=== PATIENT | female | born 1995 | race Two or more races ===

== ENCOUNTER 2024-09-26 11:05 | Outpatient (CLI) | payer OTHER | END 2024-09-26 11:06 | disposition home or self-care (01) | LOC: PRENATAL 11:05 | PROVIDERS: ATTEND Obstetrics & Gynecology Maternal & Fetal Medicine | DX: O36.80X0 Pregnancy with inconclusive fetal viability, not applicable or unspecified (principal); Z36.82 Encounter for antenatal screening for nuchal translucency; Z14.8 Genetic carrier of other disease; O44.00 Complete placenta previa NOS or without hemorrhage, unspecified trimester; Z3A.14 14 weeks gestation of pregnancy ==

== ENCOUNTER → 2024-11-06 14:28 | Outpatient (CLI) | payer OTHER | END | disposition home or self-care (01) | LOC: PRENATAL 14:28 | PROVIDERS: ATTEND Obstetrics & Gynecology | DX: O44.00 Complete placenta previa NOS or without hemorrhage, unspecified trimester (principal); Z3A.20 20 weeks gestation of pregnancy ==

== ENCOUNTER 2024-12-17 17:05 | Emergency (ER) | payer OTHER ==
[~2024-12-17] VITALS: Ht 154.9 cm; Wt 61.2 kg
[2024-12-17] MEDS ORDERED: PRENATAL + DHA1 EAC1 PO (17:42)
[2024-12-17 18:24] LABS: BASO % 0.3 % (0.1-1.2); EOS # 0.09 (0.04-0.54); EOS % 0.8 % (0.7-7.0); LYMPH # 1.61 (1.18-3.74); LYMPH % 13.8 % (19.3-53.1); MEAN PLATELET VOLUME 10.00 fl (9.4-12.4); MONO # 0.86 (0.24-0.82); MONO % 7.4 % (4.7-12.5); NEUT # 9.01 (1.56-6.13); NEUT % 76.9 % (34.0-71.1); RED CELL DISTRIBUTION WIDTH 13.9 % (11.6-14.4)
[2024-12-17 18:51] LABS: BUN CREA RATIO 15.0 (7.0-25.0); CREATININE SERUM 0.48 mg/dL (0.55-1.02); GFR 154.0; GLUCOSE FASTING 102.0 mg/dL (65-100); OSMOLALITY SERUM 276.0 MOSM/KG (275-295)
[2024-12-17 19:46] LABS: URINE APPEARANCE Clear; URINE BILIRRUBIN Negative (NEGATIVE); URINE BLOOD Negative; URINE COLOR Yellow; URINE GLUCOSE Negative (NEGATIVE); URINE KETONE Negative (NEGATIVE); URINE LEUKOCYTE Negative; URINE NITRATE Negative; URINE PROTEIN Negative (NEGATIVE); URINE UROBILINOGEN 1.0 E.U./dl
[2024-12-17 19:50] LABS: URINE BACTERIA 901.2 uL (0.0-1933); URINE EPITHELIAL CELLS 50.2 uL (0.0-38.8); URINE RBC 9.0 uL (0.0-20.8); URINE WBC 6.9 uL (0.0-23.2)
[2024-12-17 19:54] LABS: URINE CAST 0.00 uL (0.0-1.40)
[2024-12-17] MEDS ORDERED: MYCELEX VAG (20:53)
== END 2024-12-17 21:18 ==
LOC: ER 17:08
PROVIDERS: Emergency Medicine
DX: O23.592 Infection of other part of genital tract in pregnancy, second trimester (principal); Z3A.26 26 weeks gestation of pregnancy; B37.49 Other urogenital candidiasis

== ENCOUNTER → 2025-01-16 | Outpatient (CLI) | payer OTHER ==
[~2025-01-16] MED LIST: MYCELEX VAG; PRENATAL + DHA1 EAC1 PO
== END | disposition home or self-care (01) ==
LOC: PRENATAL 12:56
PROVIDERS: ATTEND Obstetrics & Gynecology Maternal & Fetal Medicine
DX: Z76.1 Encounter for health supervision and care of foundling (principal)

== ENCOUNTER 2025-01-30 13:36 | Inpatient (IN) | payer OTHER ==
[~2025-01-30] VITALS: Ht 154.9 cm; Wt 1.4 kg
[2025-01-30] MEDS ORDERED: BETAMETHASONE ACETATE,SOD PHOS 30 MG/5 ML ML ONE (13:41)
[2025-01-30 14:00] VITALS: BP 112/69
[2025-01-30] MEDS ORDERED: BETAMETHASONE ACETATE,SOD PHOS 30 MG/5 ML ML IM ONE (14:18)
[2025-01-30 15:04] LABS: BASO % 0.2 % (0.1-1.2); EOS # 0.05 (0.04-0.54); EOS % 0.5 % (0.7-7.0); LYMPH # 1.28 (1.18-3.74); LYMPH % 13.3 % (19.3-53.1); MEAN PLATELET VOLUME 10.70 fl (9.4-12.4); MONO # 0.87 (0.24-0.82); MONO % 9.1 % (4.7-12.5); NEUT # 7.32 (1.56-6.13); NEUT % 76.4 % (34.0-71.1); RED CELL DISTRIBUTION WIDTH 14.6 % (11.6-14.4)
[2025-01-30 15:11] LABS: URINE APPEARANCE Cloudy; URINE BILIRRUBIN Negative (NEGATIVE); URINE BLOOD Moderate; URINE COLOR Yellow; URINE KETONE Trace (NEGATIVE); URINE LEUKOCYTE Trace; URINE NITRATE Negative; URINE PROTEIN Negative (NEGATIVE); URINE UROBILINOGEN 1.0 E.U./dl
[2025-01-30 15:14] LABS: URINE BACTERIA 555.5 uL (0.0-1933); URINE EPITHELIAL CELLS 42.7 uL (0.0-38.8); URINE RBC 10.1 uL (0.0-20.8); URINE WBC 22.9 uL (0.0-23.2)
[2025-01-30 15:19] LABS: URINE CAST 0.00 uL (0.0-1.40); URINE GLUCOSE 250 MG/DL (NEGATIVE)
[2025-01-30 15:50] VITALS: BP 115/70
[2025-01-30 15:52] LABS: INR 0.97
[2025-01-30] MEDS ORDERED: OXYTOCIN 10 UNITS/ML VIAL ONE (17:56)
[2025-01-30] MEDS ORDERED: ERYTHROMYCIN BASE OPHT 1GM EACH TUBE OP ONE (17:56)
[2025-01-30] MEDS ORDERED: MORPHINE SULFATE 4 MG/ML CARTRIDGE IV SCH (21:00)
[2025-01-30] MEDS ORDERED: KETOROLAC TROMETHAMINE 60 MG VIAL IM ONE (21:08)
[2025-01-30 22:22] VITALS: BP 123/70
[2025-01-31] VITALS: BP 100/60
[2025-01-31] MEDS ORDERED: KETOROLAC TROMETHAMINE 60 MG VIAL IM NR (02:00)
[2025-01-31] MEDS ORDERED: OxyCODONE HCL 5 MG TABLET (ROXICODONE) PO SCH (05:00)
[2025-01-31 06:31] LABS: BASO % 0.1 % (0.1-1.2); EOS # 0.00 (0.04-0.54); EOS % 0.0 % (0.7-7.0); LYMPH # 1.17 (1.18-3.74); LYMPH % 7.1 % (19.3-53.1); MEAN PLATELET VOLUME 11.20 fl (9.4-12.4); MONO # 1.08 (0.24-0.82); MONO % 6.6 % (4.7-12.5); NEUT # 14.08 (1.56-6.13); NEUT % 85.5 % (34.0-71.1); RED CELL DISTRIBUTION WIDTH 14.6 % (11.6-14.4)
[2025-01-31 08:00] VITALS: BP 128/71
[2025-01-31] MEDS ORDERED: SIMETHICONE 125 MG CAPSULE PO SCH (08:00)
[2025-01-31] MEDS ORDERED: DOCUSATE SODIUM 100MG CAP PO SCH (08:00)
[2025-01-31] MEDS ORDERED: PNV,CALCIUM 72/IRON/FOLIC ACID 1 TAB TABLET PO SCH (08:00)
[2025-01-31] MEDS ORDERED: BETAMETHASONE ACETATE,SOD PHOS 30 MG/5 ML ML IM NR (14:15)
[2025-01-31 16:00] VITALS: BP 106/65
[2025-02-01 00:39] VITALS: BP 100/60
[2025-02-01 08:48] VITALS: BP 101/62
[2025-02-01 19:37] VITALS: BP 104/67
[2025-02-02 00:34] VITALS: BP 106/69
[2025-02-02 08:00] VITALS: BP 113/74
== END 2025-02-02 14:37 | disposition home or self-care (01) | DRG 786 ==
LOC: LDR 13:36 → OB/GYN 13:36 → O/R 18:17 → OB/GYN 20:18
PROVIDERS: ADMIT Obstetrics & Gynecology; ATTEND Obstetrics & Gynecology
PROC: 4A1HXCZ Monitoring of Products of Conception, Cardiac Rate, External Approach (ICD-10-PCS; 2025-01-30)
PROC: BY4FZZZ Ultrasonography of Third Trimester, Single Fetus (ICD-10-PCS; 2025-01-30)
PROC: BU4CZZZ Ultrasonography of Uterus and Ovaries (ICD-10-PCS; 2025-01-30)
PROC: 10D00Z1 Extraction of Products of Conception, Low, Open Approach (ICD-10-PCS; principal; 2025-01-30 18:30)
DX: O32.1XX0 Maternal care for breech presentation, not applicable or unspecified (principal); O60.14X0 Preterm labor third trimester with preterm delivery third trimester, not applicable or unspecified; O26.843 Uterine size-date discrepancy, third trimester; O36.8130 Decreased fetal movements, third trimester, not applicable or unspecified; O99.891 Other specified diseases and conditions complicating pregnancy; O24.410 Gestational diabetes mellitus in pregnancy, diet controlled; Z3A.32 32 weeks gestation of pregnancy; Z37.0 Single live birth